=== PATIENT | male | born 1970 | race Two or more races ===

== ENCOUNTER 2016-07-29 10:22 | Emergency (ER) | payer OTHER ==
[2016-07-29 10:46] VITALS: RESP 18; TEMP 97.9
[2016-07-29] MEDS ORDERED: IBUPROFEN 600 MG TAB PO ONE (11:00)
[2016-07-29] MEDS ORDERED: ACETAMINOPHEN 325 MG TAB PO ONE (11:00)
--- NOTE | 2016-07-29 12:05 | EDPHY ---
H & P Time Seen by Provider: 07/29/16 10:53 HPI/ROS: This patient complains of work comp injury to his back. Explains that some obtained 7 and 12 days ago while at work in the [employer] industry a large 500 lb or so metal Bob fell and knocked the patient over. He reports he was briefly pain between 2 pieces of iron that coworkers lifted off him. He has had ongoing right lumbar paraspinous pain since that time drinks is 7/10 intensity achy and sharp in nature worse with certain movements and radiating to his right buttock. He reports no exacerbating factors other than worsening with lifting or moving. He did try ibuprofen yesterday with minimal improvement. ROS: He reports paraspinous more than midline pain no extremity injuries. No other musculoskeletal complaints Neuro: No numbness tingling or focal weakness. No bowel or bladder incontinence. GI: No belly pain nausea or vomiting Pulmonary: No chest pain or shortness of breath. 5 point ROS is otherwise negative Past Medical/Surgical History: Otherwise healthy Smoking Status: Current every day smoker Physical Exam: General Appearance: Alert, no distress. Eyes: Pupils equal and round no pallor or injection. ENT, Mouth: Mucous membranes moist. Atraumatic Respiratory: There are no retractions, lungs are clear to auscultation. Cardiovascular: Regular rate and rhythm. Gastrointestinal: Abdomen is soft and nontender, no masses, bowel sounds normal. Back: Mild midline tenderness all 4 5 region with right-sided paraspinous muscular tenderness and mild spasm more than left paraspinous. Straight leg raise is negative bilaterally. Neurological: GCS 15. He maintains normal light touch sensory exam in the saddle region and bilateral lower extremities with 5/5 strength in great toe dorsiflexion plantar flexion bilaterally and 2+ symmetric patellar and Achilles DTRs bilaterally. Skin: Warm and dry, no rashes. Musculoskeletal: Neck is supple nontender. Extremities are symmetrical, full range of motion. Psychiatric: Mood and affect normal DIFFERENTIAL DIAGNOSIS: After history and physical exam differential diagnosis was considered for lumbar strain versus lumbar fracture, doubt disc herniation given lack of radicular findings. Constitutional: Initial Vital Signs Temperature (C) 36.6 C 07/29/16 10:33 Heart Rate 93 07/29/16 10:33 Respiratory Rate 18 07/29/16 10:33 Blood Pressure 152/96 H 07/29/16 10:33 O2 Sat (%) 96 07/29/16 10:33 O2 Delivery Mode Room Air Allergies/Adverse Reactions: Penicillins Allergy (Intermediate, Verified 07/29/16 10:32) LIGHTHEADED, DIZZINESS Home Medications: Medication Instructions Recorded Ibuprofen [Motrin (*)] 600 mg PO Q6 PRN #30 tab 07/29/16 Methocarbamol [Robaxin 750 mg (*)] 750 - 1,500 mg PO QID PRN #30 tab 07/29/16 MDM/Departure - MDM Diagnostics: Lumbar x-ray: Discussed with radiologist-evidence of acute fracture. Mild degenerative changes are present L4-5 Imaging Results: Imaging Impressions Lumbar Spine X-Ray 07/29/16 11:01 Impression: Mild degenerative features, with no acute or subacute osseous abnormality. If there is further clinical concern regarding the patient's lumbago and radicular symptoms, MR imaging could be considered. Findings were discussed with USMAN POWER M.D. at 12:05, on 07/29/2016. Medications Given: Discontinued Medications Acetaminophen (Tylenol) 975 mg PO EDNOW ONE Stop: 07/29/16 11:01 Last Admin: 07/29/16 11:05 Dose: 975 mg Ibuprofen (Motrin) 600 mg PO EDNOW ONE Stop: 07/29/16 11:01 Last Admin: 07/29/16 11:06 Dose: 600 mg ED Course/Re-evaluation: I counseled patient regarding low back strain and demonstrated some stretching and rehab exercises. No clinical or radiographic evidence of acute fracture, cauda equina or other concerning findings - Depart Disposition: Home, Routine, Self-Care Clinical Impression: Low back strain Qualifiers: Encounter type: initial encounter Qualified Code(s): S39.012A - Strain of muscle, fascia and tendon of lower back, initial encounter Condition: Good Instructions: Low Back Strain (ED) Additional Instructions: Diagnosis: Low back strain No fractures appreciated in your x-ray. Plan: Ibuprofen 400-600 mg per 6 hours regularly for the next week then as needed. Methocarbamol muscle relaxants as needed. Tylenol in addition as needed for pain. No driving alcohol or work on methocarbamol Starts daily stretches prior to taking muscle relaxants and Vicodin in the morning. 3-5 minutes each of: "Butterfly stretch," "Sphinx stretch", "pigeon stretch", and hamstring stretch. Avoid lifting more than 5-10 pounds until symptoms improve. Call your primary care physician for a followup appointment in 3-7 days. Return to the emergency department for worsening of your symptoms despite the treatment plan. 2 days off of work with no heavy lifting. Follow up with work comp clinic for further evaluation on Saturday. Stand Alone Forms: Work Excuse Prescriptions: Ibuprofen [Motrin (*)] 600 mg PO Q6 PRN #30 tab PRN Reason: Pain Methocarbamol [Robaxin 750 mg (*)] 750 - 1,500 mg PO QID PRN #30 tab PRN Reason: Muscle Spasms Referrals: NONE *PRIMARY CARE P,. [Primary Care Provider] - As per Instructions
[2016-07-29 12:30] VITALS: BP 145/62; PULSE 78; O2SAT 97
== END 2016-07-29 12:29 | disposition home or self-care (01) ==
LOC: CED 10:22
DX: S39.012A Strain of muscle, fascia and tendon of lower back, initial encounter (principal); F17.200 Nicotine dependence, unspecified, uncomplicated; W20.8XXA Other cause of strike by thrown, projected or falling object, initial encounter; Y92.69 Other specified industrial and construction area as the place of occurrence of the external cause; Y99.0 Civilian activity done for income or pay; Y93.89 Activity, other specified
CPT/HCPCS: 72100-PO